=== PATIENT | male | born 1980 | race Two or more races ===

== ENCOUNTER 2023-05-11 01:04 | Emergency (ER) | payer OTHER ==
[~2023-05-11] VITALS: Ht 170.2 cm; Wt 77.3 kg
[2023-05-11 01:17] VITALS: BP 114/77; PULSE 77; RESP 18; TEMP 98.3
== END 2023-05-11 02:48 | disposition home or self-care (01) ==
LOC: EMS 01:04
DX: S01.01XA Laceration without foreign body of scalp, initial encounter (principal); X58.XXXA Exposure to other specified factors, initial encounter; Y93.89 Activity, other specified; Y92.89 Other specified places as the place of occurrence of the external cause; Y99.8 Other external cause status
CPT/HCPCS: 12002; 99282; Z7502